=== PATIENT | male | born 1975 | race Native Hawaiian/Other Pacific Islander ===

== ENCOUNTER 2020-05-25 22:07 | Emergency (ER) | payer OTHER ==
[2020-05-25] MEDS ORDERED: IBUPROFEN 800 MG TABLET PO STA (22:52)
[2020-05-26 00:22] VITALS: BP 142/93
--- NOTE | 2020-05-26 02:04 | ED Physician Documentation ---
History of Present Illness - Stated complaint Stated Complaint: LT LEG PX - Chief complaint Chief Complaint: Ext Problem - History obtained from History obtained from: Patient, Family () - Additonal information Additional information: 45-year-old man with past medical history of gout presents with L knee pain a/w swelling x3 days. Aching, gradual onset pain in left knee where he previously has had gout flares, worse with movement of the knee, nonradiating, not improved with oral prednisone prescribed by his primary doctor. Denies fevers, trauma to the knee, redness, or other joint involvement. Review of Systems Ten Systems: 10 systems reviewed and negative Constitutional: denies: Fever, Chills Skin: denies: Rash Musculoskeletal: reports: Joint pain PD PAST MEDICAL HISTORY - Present Medications Home Medications: Ambulatory Orders Medication Instructions Recorded Confirmed Ibuprofen [Motrin] 600 mg PO Q6H PRN #30 tab 05/25/20 - Allergies Allergies/Adverse Reactions: Allergies Allergy/AdvReac Type Severity Reaction Status Date / Time No Known Drug Allergies Allergy Verified 05/25/20 22:12 PD ED PE NORMAL - Vitals Vital signs reviewed: Yes - General General: Alert and oriented X 3 - HEENT HEENT: Atraumatic - Neck Neck: Supple, no meningeal sign - Cardiac Cardiac: RRR - Respiratory Respiratory: No respiratory distress, Clear bilaterally - Abdomen Abdomen: Normal bowel sounds, Non tender, Non distended - Extremities Extremities: Other (Left knee tender to palpation. Tender with range of motion. Mild swelling to the joint. None erythematous cool to the touch) Results - Vitals Vitals: Vital Signs - 24 hr 05/25/20 05/26/20 22:12 00:21 Temperature 37.0 C Heart Rate 88 82 Respiratory 16 16 Rate Blood Pressure 134/95 H 142/93 H O2 Saturation 98 97 Oxygen O2 Source Room air PD MEDICAL DECISION MAKING - ED course Complexity details: reviewed results, re-evaluated patient, d/w patient, d/w family ED course: 45-year-old man with acute gout flare, improved with 800 mg ibuprofen. Counseled patient to continue his steroid course and follow-up with his primary doctor. Strict return precautions given. Prescription for as needed ibuprofen sent. Departure - Departure Disposition: 01 Home, Self Care Clinical Impression: Pain in extremity Condition: Good Instructions: Gout Attack Tx Prescriptions: Ibuprofen [Motrin] 600 mg PO Q6H PRN #30 tab PRN Reason: Pain Comments: You have been seen in the emergency department for an acute gout flare. Continue to take your prednisone and follow-up with your doctor. You were given ibuprofen, and anti-inflammatory medicine. This is available [id number]. Please return to the emergency room for any worsening of symptoms. Discharge Date/Time: 05/26/20 00:21
--- NOTE | 2020-05-26 11:09 | XRAY Report ---
PROCEDURE: Knee 2 View LT INDICATIONS: gout flare TECHNIQUE: 2 views of the left knee(s) were acquired. COMPARISON: None. FINDINGS: Bones: No acute fractures or dislocations. There is mild erosion of the inferior margin of the carr lla and anterior tibia. Degenerative changes of the left knee. No suspicious bony lesions. Soft tissues: There is a large soft tissue density projecting over the anterior, inferior aspect of p atella consistent with gouty tophus. There is associated erosion of the inferior margin patella and t he adjacent anterior tibia. No other suspicious soft tissue calcifications. 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 No significant discrepancy with initial interpretation by overnight radiologist. Reviewed by: Reji Can MD on 05/26/2020 10:07 AM [facility] Approved by: Reji Can MD on 05/26/2020 10:07 AM [facility] Station ID: [id number]
== END 2020-05-26 00:21 | disposition home or self-care (01) ==
LOC: EDBD → ED 22:07
DX: M10.062 Idiopathic gout, left knee (principal)
CPT/HCPCS: 73560; 99282; 99283; A9270